=== PATIENT | male | born 1975 | race American Indian/Alaskan Native ===

== ENCOUNTER 2020-09-14 18:02 | Emergency (ER) | payer SELFPAY ==
[2020-09-14] MEDS ORDERED: ACETAMINOPHEN 500 MG TAB PO ONE (19:24)
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
[2020-09-14 21:01] VITALS: BP 132/90
== END 2020-09-14 21:02 | disposition home or self-care (01) ==
LOC: ED 18:02
DX: S20.212A Contusion of left front wall of thorax, initial encounter (principal); E11.9 Type 2 diabetes mellitus without complications; Z79.899 Other long term (current) drug therapy; Z98.890 Other specified postprocedural states; V49.49XA Driver injured in collision with other motor vehicles in traffic accident, initial encounter; Y92.410 Unspecified street and highway as the place of occurrence of the external cause; Y93.89 Activity, other specified; Y99.8 Other external cause status
CPT/HCPCS: 99283